=== PATIENT | male | born 1990 | race Caucasian/White ===

== ENCOUNTER 2017-08-14 08:38 | Emergency (ER) | payer BC, SELFPAY ==
--- NOTE | 2017-08-14 08:38 | DT_ITS ---
This patient was seen during an EMR downtime August 07, 2017 - August 14, 2017. This patient may have a combination of paper and electronic documentation or all paper documentation. All documentation is viewable within the e-chart portion of [facility] for each patient visit.
[2017-08-14 08:39] VITALS: BP 152/89; PULSE 101; RESP 16; TEMP 36.8; O2SAT 99; BMI 24.0
--- NOTE | 2017-08-14 09:02 | CT_ITS ---
STUDY: CT BRAIN WITHOUT CONTRAST REASON FOR EXAM: Male, 26 years old. Left arm/leg tingling today. No known injury.. RADIATION DOSAGE (If Supplied By Facility): CTDIvol = ( 44.99 ) mGy, DLP = ( 745.49 ) mGycm TECHNIQUE: Transaxial CT imaging of the brain was performed without administration of intravenous contrast material. Individualized dose optimization techniques were used for this CT. COMPARISON: None. FINDINGS: Normal soft tissue structures. Normal calvarium. Normal size ventricles and extra-axial spaces for the patient's age. Normal white matter tracts of the cerebral hemispheres. Normal basal ganglia and thalami. Normal brainstem. Normal cerebellum. There is no intracranial hemorrhage. There are no findings of an acute ischemic infarction. Normal visualized paranasal sinuses. CT/Brain/Head without Contrast IMPRESSION: Normal unenhanced CT scan of the brain. Electronically Signed: Nelida Hernandez MD at 10:05 EDT Tel , Service support ,
--- NOTE | 2017-08-14 09:02 | EKG12_ITS ---
Test Reason : Blood Pressure : / mmHG Vent. Rate : 086 BPM Atrial Rate : 086 BPM P-R Int : 136 ms QRS Dur : 094 ms QT Int : 352 ms P-R-T Axes : 063 095 044 degrees QTc Int : 421 ms Normal sinus rhythm with sinus arrhythmia Normal ECG Confirmed by MAYELA ALVARADO, TANMAY ([id number]), editor news SOM FOWLER ([id number]) on 08/16/2017 5:58:29 PM Referred By: GERARDO Confirmed By:TANMAY PEDRO MD
--- NOTE | 2017-08-14 09:15 | ED.DCSUM_ITS ---
History of Present Illness Chief Complaint: Numb/Ting Informant: Patient Onset: Today, Hours - 2 Context: Gradual Onset Timing: Continuous, Lasts - around 15-20 min prior to improving Quality: tingling, like my arm falling asleep Location: [facility] Current Severity: Mild Maximum Severity: Moderate Worsened by: nothing Relieved by: nothing Associated Symptoms: ? 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 However, he was concerned at the time that an abnormal smell could indicate an acute stroke. 2 hours after that smell occurred, he started having numbness and tingling in his proximal left arm, also been radiating into his ulnar forearm and entire hand, and also noticed some weakness in his left leg that was mild, but he qualifies this by stating the day before, he did a leg workout at the gym including squats and has been sore in both of his thighs, and wonders if this could be why he is feeling like that. He states he has had no trouble walking this morning. No trouble speaking, understanding others, chest discomfort, or shortness of breath/palpitations, but states that he felt lightheaded at one point. He states his symptoms really lasted prominently for 15-20 minutes and then improved but have been mildly present since. He states no headache with this although he admits to having headache earlier in his occipital region, more on the right, states that he has had that off and on from time to time in the past but not frequently and does not think it has been a major issue for him. No recent head injury. No medical problems. He smokes and vapes. Prior similar symptoms: No Past Medical History - Allergies and Home Meds Allergies/Adverse Reactions: Allergies No Known Allergies Allergy (Verified 09/07/14 19:16) Primary Care Physician: Demetrio Thurston DO [Primary Care Provider] - Past Medical History: None Surgical History: no surgical history Smoking Status: Current every day smoker Drugs: None Review of Systems All systems negative except as indicated General: Reports: - - lightheadedness Neurological: Reports: Headache - earlier this AM, gone throughout sx episode, Weakness, Parasthesia Physical Exam Vital Signs/Narrative: Vital Signs Temp Pulse Resp BP Pulse Ox 08/14/17 08:39 98.2 F 101 H 16 152/89 H 99 Inital Vital Signs reviewed: Yes General: Well nourished, Well developed Head: Normocephalic, Atraumatic Eyes: Perrl, EOMI ENT: Moist mucous membranes, No rhinorrhea Neck: Supple, Nontender Cardiovascular: Regular rate, Regular rhythm, No murmurs Respiratory: No distress, CTA bilaterally, Chest nontender Abdomen: Soft, Nontender, Nondistended, Normal bowel sounds Back: Nontender, Normal Inspection Extremities: Nontender, No edema Skin: Normal color, No rash Neurological: Alert - keenly; well-appearing, nad, Oriented x3 - correct month and age, Cranial nerves II-XII grossly intact, Normal Strength, Parasthesia - slight altered pinprick sensation LLE, - - no aphasia or dysarthria, no hemineglect or inattention. total NIHSS - 1 Psychological: Normal affect Diagnostic/Tx/Re-eval - Rhythm Strip Rhythm Strip: Sinus Rhythm Rate: 80 Ectopy: None - EKG 1 Interpretation: Sinus Rhythm, No Acute Injury Pattern, - - nml axis. nml EKG - Medical Decision Making Labs unremarkable, CT head unremarkable. Discussed with neurology, they recommended stat MRI of the brain and safely discharging home with close outpatient follow-up if negative. This was done, and unremarkable. Therefore, since the patient is still having off and on numbness in his left upper extremity I feel comfortable telling him this is not acute stroke or TIA, as ischemic abnormalities would be seen on MRI flair imaging. I suspect atypical migraine given the headaches he has been having. Plan is to offer a dose of Reglan prior to discharge although his IV was withdrawn at his request, so we will be orally, and he will be given follow-up instructions for neurology. Of note, after the IV was removed, he became very anxious, tachycardic, tachypneic , and had tingling in all 4 extremities followed by cramping of his fingers and contractions. As he calmed down these quickly improved/resolved. He then declined medications as he started feeling better, as he was offered morphine and Ativan. ED Disposition - Plan for ED Patient: Disposition: Home or Assisted Living Chief Complaint: Numb/Ting Diagnosis: Paresthesia of left upper and lower extremity, Intermittent headache Instructions: ED Paraesthesias, ED Headache Migraine Prescriptions: Sumatriptan Succinate [Imitrex] 25 mg PO .X1 PRN PRN #6 tab PRN Reason: Migraine Symptoms Referrals: Syed Moffett MD [STAFF PHYSICIAN] - As soon as possible Demetrio Thurston DO [Primary Care Provider] - 3-5 Days if not improving
[2017-08-14 09:27] VITALS: O2SAT 99
[2017-08-14 09:32] LABS: International Normalized Ratio 1.1; Prothrombin Time (Protime)PT. 13.8 SECONDS (11.7-14.9)
[2017-08-14 09:33] LABS: Partial Thromboplast Time 28.3 Seconds (24.1-36.2)
[2017-08-14 09:42] LABS: Absolute Lymphocyte Count 1.39 X10^3/ul (0.83-4.51); Absolute Neutrophil Count 5.5 X10^3/uL (2.0-7.7); Basophil# 0.03 X10^3/uL; Basophil% 0.4 % (0-1); Eosinophil# 0.14 X10^3/uL; Eosinophils% 1.8 % (0-5); Hematocrit 50.4 % (40-54); Lymphocyte # 1.39 X10^3/ul (4.0); Lymphocyte % 18.3 % (19-41); Mean Corp Hgb Conc 35.7 g/gl (32-36); Mean Corpuscular Hgb 31.6 pg (27.0-32.0); Mean Corpuscular Volume 88.4 fL (80-94); Mean Platelet Vol. 10.8 fl (6.2-12.0); Monocyte# 0.55 X10^3/uL; Monocyte% 7.2 % (0-10); Neutrophil # 5.49 X10^3/uL (2.7-7.7); Neutrophil % 72.2 % (47-70); Platelet Count 169 K/mm3 (150-450); RBC Distribution Width SD 38.1 fl (35.1-43.9); White Blood Count 7.6 K/mm3 (4.4-11.0)
[2017-08-14 09:47] LABS: Anion Gap 8 (5-15); BUN 12 mg/dL (7-18); BUN/Creat Ratio 11.8 RATIO (10-20); Calcium,Total 9.3 mg/dL (8.5-10.1); Chloride 101 mmol/L (98-107); Creatinine, Serum 1.02 mg/dL (0.70-1.30); EST Glomerular Filtration Rate 95 mL/min (>60); Est Glom Filt Rate - Afr Amer 115 mL/min (>60); Glucose 115 mg/dL (74-106); Potassium 3.6 mmol/L (3.5-5.1); Sodium Level 137 mmol/L (136-145)
[2017-08-14 09:48] LABS: POSITIVE COUNT NO; POSITIVE DIFFERENTIAL NO; POSITIVE MORPHOLOGY NO
[2017-08-14 10:11] LABS: Bedside Glucose 106 mg/dL (70-110)
--- NOTE | 2017-08-14 11:59 | MRI_ITS ---
STUDY: MRI BRAIN WITHOUT CONTRAST REASON FOR EXAM: Male, 26 years old. NUMBNESS/TINGLING LEFT SIDE SINCE 7 AM. TECHNIQUE: Standardized multiplanar fat and water weighted pulse sequences were obtained. COMPARISON: None. FINDINGS: Normal size of the ventricles and extra-axial spaces for the patient's age. Normal white matter tracts of the supratentorial brain. Normal bilateral basal ganglia. Normal thalami. There is no extra-axial fluid accumulation. Normal flow voids within the major intracranial circulation suggesting patency by spin echo criteria. Normal sella turcica, pituitary gland, infundibular stalk, optic chiasm and hypothalamus. Normal tectal plate and pineal gland. Normal midbrain, ponce and medulla. Normal cerebellum. Normal basal cisterns. Normal bilateral temporal bones. Normal bilateral internal auditory canals. No demonstrated orbital abnormality, within the constraints of a routine brain study. Normal visualized paranasal sinuses. Normal calvarium and skull base. Normal visualized soft tissue structures. Normal visualized upper cervical spine. MRI/Brain without Contrast IMPRESSION: Normal unenhanced MRI of the brain. Electronically Signed: Nelida Hernandez MD at 14:23 EDT Tel , Service support ,
[2017-08-14 13:37] VITALS: BP 138/80; PULSE 89; RESP 16; O2SAT 97
[2017-08-14 14:42] VITALS: BP 121/75; PULSE 92; RESP 16; O2SAT 97
== END 2017-08-14 14:44 | disposition home or self-care (01) ==
PROVIDERS: Emergency Provider Emergency Medicine; Family Provider Family Medicine; PCP Family Medicine
DX: G43.909 Migraine, unspecified, not intractable, without status migrainosus (principal); R20.2 Paresthesia of skin; R53.1 Weakness; R00.0 Tachycardia, unspecified; R06.82 Tachypnea, not elsewhere classified; R25.2 Cramp and spasm; F17.200 Nicotine dependence, unspecified, uncomplicated; Z79.899 Other long term (current) drug therapy
CPT/HCPCS: 70450; 70551; 80048; 82962; 84484; 85025; 85610; 85730; 93005; 96360; 96361; 99285; J7040